=== PATIENT | female | born 1980 | race Two or more races ===

== ENCOUNTER 2016-12-26 22:17 | Emergency (ER) | payer SELFPAY ==
[~2016-12-26] VITALS: Ht 160 cm; Wt 74.8 kg
[2016-12-26 22:20] VITALS: BP 110/62
[2016-12-27] MEDS ORDERED: SILVER SULFADIAZINE 1 % TOPICAL CREAM 50GM TOP ONE ×2 (01:28→01:30)
== END 2016-12-27 02:07 | disposition home or self-care (01) ==
LOC: ER 22:22
DX: T22.212A Burn of second degree of left forearm, initial encounter (principal); X12.XXXA Contact with other hot fluids, initial encounter; Y93.89 Activity, other specified; Y99.8 Other external cause status; Y92.89 Other specified places as the place of occurrence of the external cause

== ENCOUNTER 2023-03-16 10:29 | Emergency (ER) | payer OTHER, MEDICAID ==
[~2023-03-16] VITALS: Ht 157.5 cm; Wt 81.0 kg
[2023-03-16 13:15] VITALS: BP 106/66; PULSE 72; RESP 16; TEMP 98.4; O2SAT 98
[2023-03-16] MEDS: KETOROLAC TROMETH 60MG/2ML VIAL IM ONE (13:33)
[2023-03-16] MEDS ORDERED: METH-1182 PO (14:04)
[2023-03-16] MEDS ORDERED: IBUP-1456 PO (14:04)
== END 2023-03-16 14:16 | disposition home or self-care (01) ==
LOC: ER 10:29 → EDBD 10:29 → ER 14:15
DX: S39.012A Strain of muscle, fascia and tendon of lower back, initial encounter (principal); Z79.899 Other long term (current) drug therapy; X50.1XXA Overexertion from prolonged static or awkward postures, initial encounter; Y93.89 Activity, other specified; Y92.89 Other specified places as the place of occurrence of the external cause; Y99.8 Other external cause status
CPT/HCPCS: 96372; 99283; J1885